=== PATIENT | male | born 2000 | race Caucasian/White ===

== ENCOUNTER 2021-02-22 16:59 | Emergency (ER) | payer MEDICAID, OTHER ==
[~2021-02-22] VITALS: Ht 165.1 cm; Wt 95.3 kg
[2021-02-22 17:34] VITALS: BP 110/78
[2021-02-22] MEDS ORDERED: FLUORESCEIN OPHTHALMIC 1 MG STRIP EACHEYE ONE (18:30)
[2021-02-22] MEDS ORDERED: PROPARACAINE OPHTH 0.5%, 15ML EACHEYE ONE (18:30)
== END 2021-02-22 19:13 | disposition left against medical advice (07) ==
LOC: ED 17:15
DX: H57.11 Ocular pain, right eye (principal)
CPT/HCPCS: 99282